=== PATIENT | female | born 1995 | race Caucasian/White ===

== ENCOUNTER → 2019-12-17 | Outpatient (CLI) | payer SELFPAY ==
--- NOTE | 2019-12-17 10:41 | REP ---
FIRST TRIMESTER ULTRASOUND: Real-time sonographic evaluation of the gravid uterus performed. There is a single living intrauterine gestation. Estimated gestational age 6 weeks 3 days based on a crown-rump length of 7 mm, EDC 08/08/2020. heart rate is 128 beats per minute. There is no subchorionic hemorrhage. Cystic structure of the left ovary probably represent a corpus luteum 2.8 x 2.3 x 2.4 cm. Blood flow is seen in each ovary with duplex Doppler evaluation, with no torsion. Electronically Signed by Marin Williamson MD 12/17/2019 02:42 P
== END ==
LOC: M RAD 09:46
PROVIDERS: ATTEND Physician Assistant
DX: Z32.01 Encounter for pregnancy test, result positive (principal); Z3A.01 Less than 8 weeks gestation of pregnancy

== ENCOUNTER 2021-01-09 02:10 | Emergency (ER) | payer MEDICAID, SELFPAY ==
[~2021-01-09] VITALS: Ht 152.4 cm; Wt 75.0 kg
[2021-01-09 02:11] VITALS: BP 133/78
== END 2021-01-09 03:22 | disposition home or self-care (01) ==
LOC: M ED 02:10
DX: K59.00 Constipation, unspecified (principal)

== ENCOUNTER 2021-04-18 19:51 | Emergency (ER) | payer SELFPAY ==
[~2021-04-18] VITALS: Ht 152.4 cm; Wt 77.8 kg
[2021-04-18 21:40] LABS: BASO % 0.4 % (0.0-1.0); HEMATOCRIT 41.6 % (36.0-47.0); LYMPH # 1.9 10^3/uL (1.5-5.0); LYMPH % 24.4 % (24.0-44.0); MEAN CORPUSCULAR HGB CONC 33.7 g/dl (32.0-36.5); MONO # 0.5 10^3/uL (0.0-0.8); NEUTROPHILS # 5.3 10^3/uL (1.5-8.5); NEUTROPHILS % 68.1 % (36.0-66.0); PLATELET COUNT, AUTOMATED 313 10^3/uL (150-450); RED BLOOD COUNT 4.52 10^6/uL (4.00-5.40); WHITE BLOOD COUNT 7.7 10^3/uL (4.0-10.0)
[2021-04-18] MEDS ORDERED: NS 1,000 ML IV ONE (22:30)
[2021-04-18] MEDS ORDERED: METOCLOPRAMIDE INJ 10MG/2ML VIAL (J2765 PER 1) IV ONE (22:30)
[2021-04-18 23:15] LABS: BLOOD UREA NITROGEN 11 MG/DL (7-18); CARBON DIOXIDE LEVEL 25 MEQ/L (21-32); CHLORIDE LEVEL 107 MEQ/L (98-107); CREATININE FOR GFR 0.53 MG/DL (0.55-1.30); GLOMERULAR FILTRATION RATE > 60.0 (>60); GLUCOSE, FASTING 74 MG/DL (70-100); POTASSIUM SERUM 3.7 MEQ/L (3.5-5.1); SODIUM LEVEL 139 MEQ/L (136-145)
[2021-04-18 23:16] LABS: ACETAMINOPHEN LEVEL < 2.0 UG/ML (10.0-30.0); ALBUMIN 3.9 GM/DL (3.2-5.2); ALT/SGPT 20 U/L (12-78); BILIRUBIN,DIRECT 0.1 MG/DL (0.0-0.2); BILIRUBIN,TOTAL 0.4 MG/DL (0.2-1.0); CALCIUM LEVEL 8.7 MG/DL (8.5-10.1); CPK CREATINE PHOSPHOKINASE 294 U/L (26-192); ETHYL ALCOHOL (ETHANOL) < 0.003 % (0.000-0.010); SALICYLATE LEVEL < 1.7 MG/DL (5.0-30.0); THYROID STIMULATING HORMONE 0.422 uIU/ML (0.358-3.740); TOTAL PROTEIN 8.2 GM/DL (6.4-8.2)
[2021-04-19] MEDS ORDERED: NS 1,000 ML IV ONE (00:10)
[2021-04-19 01:28] LABS: HCG, SERUM QUALITATIVE NEGATIVE (NEGATIVE)
[2021-04-19 01:33] VITALS: BP 112/68
[2021-04-19] MEDS ORDERED: ZOFR4TAB16 PO (01:36)
--- NOTE | 2021-04-19 11:21 | ECGEPIP ---
[facility] - ED Test Date: 2021-04-18 Pat Name: SHELLEY LEAL Department: Room: - Gender: Female [employer]arer: : 1995 Requested By: ANGELO Fermin Order Number: [id number] Reading MD: Yuliya Gonzalez Measurements Intervals [place] Rate: 79 P: 45 FL: 118 QRS: 46 QRSD: 86 T: 28 QT: 384 QTc: 440 Interpretive Statements Normal sinus rhythm with sinus arrhythmia right ventricular conduction delay No prior Electronically Signed on 04-19-2021 11:21:16 EDT by Yuliya Gonzalez
[2021-04-20] MEDS ORDERED: ZOFR4TAB16 PO (12:07)
== END 2021-04-19 01:45 | disposition home or self-care (01) ==
LOC: M ED 19:51
DX: E86.0 Dehydration (principal); F15.10 Other stimulant abuse, uncomplicated
CPT/HCPCS: 80048; 80076; 80143; 82077; 82550; 84443; 84703; 85025; 93005; 96361; 96374; 99284; J2765

== ENCOUNTER 2021-09-30 08:41 | Emergency (ER) | payer OTHER ==
[~2021-09-30] VITALS: Ht 152.4 cm; Wt 68.2 kg
[~2021-09-30 08:41] MED LIST: ZOFR4TAB16 PO
[2021-09-30] MEDS ORDERED: BOOSTRIX/ADACEL VACCINE (DIPHTH/PERTUSS/ACELL/TETANUS) 0.5ML SYR IM ONE (08:55)
[2021-09-30] MEDS ORDERED: ceFAZolin SOD 1 GM in D5W MINI-BAG PLUS 50 ML IV ONE (08:55)
[2021-09-30] MEDS ORDERED: fentaNYL 100 MCG/2 ML INJECTION IV PRN (08:55)
[2021-09-30] MEDS ORDERED: MUPI2OI TOP (09:44)
[2021-09-30 09:55] VITALS: BP 127/80
[2021-09-30] MEDS ORDERED: NEOSPORIN TOP OINT 15GM TOP ONE (10:00)
[2021-09-30] MEDS ORDERED: KETO10TAB PO (10:32)
== END 2021-09-30 10:40 | disposition home or self-care (01) ==
LOC: M ED 08:41 → EDBD 08:41 → M ED 10:40
DX: S60.222A Contusion of left hand, initial encounter (principal); S60.512A Abrasion of left hand, initial encounter; W23.0XXA Caught, crushed, jammed, or pinched between moving objects, initial encounter; Y92.89 Other specified places as the place of occurrence of the external cause
CPT/HCPCS: 73090; 73110; 73130; 84702; 90471; 90715; 96365; 96375; 99284; J0690; J3010